=== PATIENT | female | born 1945 ===

== ENCOUNTER 2017-11-01 05:58 | Day surgery (SDC) | payer OTHER ==
[~2017-11-01 05:58] MED LIST: CRESTOR20 MG PO; FOSAMAX70 MG PO; LOTREL 5-20 MG1 CAP PO; SYNTHROID88 MCG PO; VITAMIN D310000 UNIT PO
== END 2017-11-01 10:25 | disposition home or self-care (01) ==
LOC: CIR.AMB 05:58
DX: N85.01 Benign endometrial hyperplasia (principal)